=== PATIENT | female | born 1960 | race Caucasian/White ===

== ENCOUNTER → 2017-10-20 | Outpatient (CLI) | payer MEDICARE ==
--- NOTE | 2017-10-20 16:05 | XR ---
EXAMINATION TYPE: XR shoulder complete LT DATE OF EXAM: 10/20/2017 CLINICAL HISTORY: History of neuropathy with pain after multiple falls TECHNIQUE: Three views of the left shoulder are obtained. COMPARISON: None. FINDINGS: There is no acute fracture/dislocation evident in the left shoulder. The acromioclavicula r and glenohumeral joint spaces appear within normal limits. The visualized ribs are intact and unre markable. IMPRESSION: There is no acute fracture or dislocation in the left shoulder. Fairly unremarkable stud y.
== END | disposition home or self-care (01) ==
LOC: RADXRYALE 15:18
PROVIDERS: ATTEND Physician Assistant Medical
DX: M25.512 Pain in left shoulder (principal)

== ENCOUNTER → 2018-02-14 | Outpatient (CLI) | payer MEDICARE, OTHER ==
--- NOTE | 2018-02-14 15:07 | XR ---
EXAMINATION TYPE: XR hand complete LT DATE OF EXAM: 02/14/2018 CLINICAL HISTORY: pain TECHNIQUE: Frontal, lateral and oblique images of the left hand are obtained. COMPARISON: None. FINDINGS: There is no acute fracture/dislocation evident. The joint spaces appear within normal limi ts. The overlying soft tissue appears unremarkable. IMPRESSION: There is no acute fracture or dislocation. ICD 10 NO FRACTURE, INITIAL EVALUATION
== END | disposition home or self-care (01) ==
LOC: RADXRYALE 14:55
PROVIDERS: ATTEND Physician Assistant Medical
DX: M79.642 Pain in left hand (principal)

== ENCOUNTER → 2018-09-20 | Outpatient (CLI) | payer MEDICARE, OTHER ==
--- NOTE | 2018-09-20 12:21 | XR ---
EXAMINATION TYPE: XR foot complete LT DATE OF EXAM: 09/20/2018 CLINICAL HISTORY: Left heel pain TECHNIQUE: Frontal, lateral, and oblique images of the left foot are obtained. COMPARISON: None FINDINGS: There is no acute fracture/dislocation evident in the left foot. Bipartite sesamoid bone is incidentally noted at the distal first metatarsal. There are small Achilles and plantar heel spurs . The joint spaces in the left foot appear within normal limits. The overlying soft tissue appears u nremarkable. IMPRESSION: 1. No acute fracture or dislocation in the left foot. 2. Small plantar and Achilles heel spurs in this patient with calcaneal pain.
== END | disposition home or self-care (01) ==
LOC: RADXRYALE 10:57
PROVIDERS: ATTEND Physician Assistant Medical
DX: M77.32 Calcaneal spur, left foot (principal)

== ENCOUNTER → 2019-01-09 | Outpatient (CLI) | payer MEDICARE ==
--- NOTE | 2019-01-09 11:34 | XR ---
EXAMINATION TYPE: XR finger LT DATE OF EXAM: 01/09/2019 COMPARISON: Left hand x-ray dated 02/14/2018 HISTORY: Left thumb pain that is generalized with no known injury. TECHNIQUE: 2 views of the left thumb were obtained FINDINGS: There is osseous perforation and joint space narrowing of the first carpometacarpal joint. This is overall mild in degree. Small ossicles that are normal variants are seen of the first metacar pal phalangeal joint. Osseous pleura further changes also seen of the first interphalangeal joint wit h small well-corticated osteophyte at the volar surface of the base of the distal phalanx likely from prior healed fracture of a small osteophyte. IMPRESSION: 1. No acute fracture or dislocation of the left thumb. 2. Degenerative changes of the first carpometacarpal joint and distal interphalangeal joints that are overall mild in the distribution of osteoarthritis. 3. There appears to be an old fracture deformity of an osteophyte at the volar surface of the distal interphalangeal joint at the base of the distal phalanx that appears well-corticated and healed.
== END | disposition home or self-care (01) ==
LOC: RADXRYALE 10:19
PROVIDERS: ATTEND Physician Assistant Medical
DX: M18.12 Unilateral primary osteoarthritis of first carpometacarpal joint, left hand (principal)

== ENCOUNTER 2019-03-15 11:37 | Day surgery (SDC) | payer MEDICARE, OTHER ==
[2019-03-13 15:21] VITALS: BMI 33.3
[~2019-03-15 11:37] MED LIST: DEXAMETHASONE SOD PHOSPHATE 10 MG/ML 1 ML VIAL IV ONE; HYDROmorphone 0.5 MG/0.5 ML SYRINGE IVP PRN; LACTATED RINGERS 1,000 ML IV SCH; LIDOCAINE 1% 20 ML VIAL (10MG/ML) FOR IV START INTRADERMA PRN; MIDAZOLAM 2 MG/2 ML VIAL IV PRN; ONDANSETRON 4 MG/2 ML VIAL IVP ONE; Pre Op ABX Message 1 EACH MISC MISCELLANE ONE; SCOPOLAMINE 1.5MG/72HR PATCH TRANSDERM ONE
[2019-03-15] MEDS ORDERED: SODIUM CHLORIDE 0.9% 50 ML with ceFAZolin 2,000 MG IV ONE ×2 (12:15)
[2019-03-15 12:33] VITALS: RESP 16; TEMP 98.5
[2019-03-15 12:43] LABS: Glucose,Whole Blood 90 mg/dL (75-99)
[2019-03-15] MEDS ORDERED: fentaNYL (PF) 50 MCG/ML 2 ML AMP ONE (12:55)
[2019-03-15] MEDS ORDERED: MIDAZOLAM 2 MG/2 ML VIAL ONE (12:55)
[2019-03-15] MEDS ORDERED: PROPOFOL 10 MG/ML 20 ML VIAL IV ONE (12:55)
[2019-03-15] MEDS ORDERED: LIDOCAINE 2% INJ 20 MG/ML SQ ONE (13:21)
--- NOTE | 2019-03-15 13:56 | P.OP ---
Date of Procedure: 03/15/19 Preoperative Diagnosis: Plantar fasciitis left foot Postoperative Diagnosis: Same Procedure(s) Performed: Endoscopic plantar fasciotomy procedure performed left foot Anesthesia: MAC Operative Findings: Unremarkable Description of Procedure: On the date of surgery the patient was taken to the operating room in good condition placed on the operating table in supine position where an IV was started and adequate IV anesthetic agents were utilized anesthesia was then further supplemented with approximately 12 mL of 2% Xylocaine plain given in an infiltrative block to the patient's left heel. At this point in time attention was directed to the patient's left heel where the patient's left heel was prepped and draped in usual aseptic manner and over heavy up web roll padding tourniquet was placed above the malleoli of the patient's left ankle. The patient's left foot and ankle were then elevated and exsanguinated of blood and after approximately 1 minutes. A time ankle tourniquet the patient's left ankle was inflated to approximately 250 mmHg At this point in time attention was directed to the plantar medial side of the patient's left heel where an approximately 1 cm linear incision was made in line with the medial band of the plantar fascia. The incision was deepened via sharp dissection down through the level of the subcutaneous tissue layers all neurovascular structures encountered were identified isolated and were retracted and any bleeding vessels were clamped electrocauterized dissection was then carried deep down to level of the plantar fascia where utilizing a fascial elevator the fascial elevator was passed along the inferior surface of the plantar fascia creating a channel for the obturator and cannula complex this was then inserted and a lateral exit portal incision was made the endoscope was introduced from the medial side and L blade from the lateral side and the medial band of the plantar fascia was severed upon completion of this was used to ensure that all fibers of the plantar fascia been severed and when this was seen to be true site was flushed with copious amounts sterile saline solution and the loose removed and the skin edges were coaptated and maintained utilizing 4-0 nylon simple interrupted suture Adaptic Kerlix fluffs four-inch conformer and 4 inch Coban was used to form a compression dressing and the ankle tourniquet to the patient's left ankle was deflated adequate hemostatic return was seen in all digits the patient's left foot. The patient tolerated the surgery and anesthesia well was taken to the recovery room in good postoperative condition
[2019-03-15 14:48] VITALS: BP 131/77; PULSE 65
== END 2019-03-15 14:48 | disposition home or self-care (01) ==
LOC: OR 11:37
PROVIDERS: ATTEND Podiatrist Foot & Ankle Surgery
DX: M72.2 Plantar fascial fibromatosis (principal); I10 Essential (primary) hypertension; E11.9 Type 2 diabetes mellitus without complications; G89.29 Other chronic pain; M54.9 Dorsalgia, unspecified; G62.9 Polyneuropathy, unspecified; M26.602 Left temporomandibular joint disorder, unspecified; F41.1 Generalized anxiety disorder; E55.9 Vitamin D deficiency, unspecified; G43.909 Migraine, unspecified, not intractable, without status migrainosus; H90.8 Mixed conductive and sensorineural hearing loss, unspecified; F32.9 Major depressive disorder, single episode, unspecified; E66.9 Obesity, unspecified; Z88.1 Allergy status to other antibiotic agents; Z87.891 Personal history of nicotine dependence; Z90.49 Acquired absence of other specified parts of digestive tract; Z96.611 Presence of right artificial shoulder joint; Z98.890 Other specified postprocedural states; Z79.890 Hormone replacement therapy; Z79.84 Long term (current) use of oral hypoglycemic drugs; Z79.1 Long term (current) use of non-steroidal anti-inflammatories (NSAID); Z79.899 Other long term (current) drug therapy; Z68.34 Body mass index [BMI] 34.0-34.9, adult
CPT/HCPCS: 29893; J2001; J2250; J1100; J2405; J0690; J3010; J2704

== ENCOUNTER → 2019-06-29 | Outpatient (CLI) | payer MEDICARE, OTHER ==
[2019-06-29 15:22] LABS: Appearance,Urine Cloudy (Clear); Bacteria,Urine Occasional /hpf; Bilirubin,Urine Negative (Negative); Blood,Urine Negative (Negative); Color,Urine Yellow; Glucose,Urine (UA) Negative (Negative); Ketones,Urine Negative (Negative); Leukocyte Esterase,Urine Large (Negative); Nitrite,Urine Negative (Negative); Protein,Urine Negative (Negative); RBC,Urine 6 /hpf (0-5); Specific Gravity,Urine 1.005 (1.001-1.035); Squamous Epithelial Cell,Urine 6 /hpf (0-4); Urobilinogen,Urine <2.0 mg/dL (<2.0); WBC,Urine 47 /hpf (0-5)
[2019-06-29 15:25] LABS: Basophils % (A) 0 %; Eosinophils # (A) 0.4 k/uL (0-0.7); Eosinophils % (A) 3 %; HCT 46.6 % (34.0-46.0); HGB 14.7 gm/dL (11.4-16.0); Lymphocytes # (A) 1.8 k/uL (1.0-4.8); Lymphocytes % (A) 14 %; MCH 30.2 pg (25.0-35.0); MCHC 31.5 g/dL (31.0-37.0); Mean Platelet Volume 6.9; Monocytes # (A) 0.6 k/uL (0-1.0); Monocytes % (A) 5 %; Neutrophils # (A) 9.9 k/uL (1.3-7.7); Neutrophils % (A) 77 %; Platelet Count 212 k/uL (150-450); RBC 4.86 m/uL (3.80-5.40); RDW 13.3 % (11.5-15.5); WBC 12.9 k/uL (3.8-10.6)
[2019-06-29 15:35] LABS: Prothrombin Time 10.3 sec (9.0-12.0)
--- NOTE | 2019-06-29 15:40 | XR ---
EXAMINATION TYPE: XR chest 2V DATE OF EXAM: 06/29/2019 COMPARISON: NONE HISTORY: Preoperative evaluation for lumbar surgery. No chest complaints. TECHNIQUE: Frontal and lateral views of the chest are obtained. FINDINGS: Copious soft tissues partially obscure the lungs on the frontal view. There is no focal ai r space opacity, pleural mild multilevel degenerative change of the spine. Effusion, or pneumothorax seen. The cardiac silhouette size is within normal limits. The osseous structures are intact. IMPRESSION: No acute cardiopulmonary process.
== END | disposition home or self-care (01) ==
LOC: LABPAT 14:47
PROVIDERS: ATTEND Orthopaedic Surgery Orthopaedic Surgery of the Spine
DX: Z01.818 Encounter for other preprocedural examination (principal); M48.02 Spinal stenosis, cervical region; G95.89 Other specified diseases of spinal cord
CPT/HCPCS: 71046; 81001; 85025; 85610; 85730; 86850; 86900; 86901

== ENCOUNTER 2019-07-05 06:03 | Day surgery (SDC) | payer MEDICARE, OTHER ==
[2019-07-03 10:13] VITALS: BMI 37.5
[2019-07-05] MEDS ORDERED: SCOPOLAMINE 1.5MG/72HR PATCH TRANSDERM ONE (06:58)
[2019-07-05] MEDS ORDERED: LIDOCAINE 1% (10MG/ML) FOR IV START INTRADERMA PRN (06:58)
[2019-07-05] MEDS ORDERED: ONDANSETRON 4 MG/2 ML VIAL IVP ONE ×2 (06:58→10:34)
[2019-07-05] MEDS ORDERED: LACTATED RINGERS 1,000 ML IV SCH (07:00)
[2019-07-05 07:24] LABS: Glucose,Whole Blood 144 mg/dL (75-99)
[2019-07-05] MEDS ORDERED: PHENYLEPHRINE-0.9% NACL SYG 1 MG/10 ML SYRINGE ONE (07:25)
[2019-07-05] MEDS ORDERED: LIDOCAINE 1% INJ 10MG/ML (20 ML MDV) ONE (07:25)
[2019-07-05] MEDS ORDERED: ePHEDrine SULFATE/0.9% NACL/PF 50 MG/5 ML SYRINGE IV ONE (07:25)
[2019-07-05] MEDS ORDERED: DEXAMETHASONE SOD PHOS (MDV) 100 MG/10 ML VIAL ONE (07:25)
[2019-07-05] MEDS ORDERED: SUCCINYLCHOLINE CHLORIDE 100 MG/5 ML SYR IV ONE (07:25)
[2019-07-05] MEDS ORDERED: ROCURONIUM BROMIDE 10 MG/ML 5 ML VIAL IV ONE (07:25)
[2019-07-05] MEDS ORDERED: PROPOFOL 10 MG/ML 20 ML VIAL IV ONE (07:25)
[2019-07-05] MEDS ORDERED: MIDAZOLAM 2 MG/2 ML VIAL ONE (07:25)
[2019-07-05] MEDS ORDERED: fentaNYL (PF) 50 MCG/ML 2 ML AMP ONE (07:25)
[2019-07-05] MEDS ORDERED: SODIUM CHLORIDE 0.9% 100 ML with ceFAZolin 2,000 MG IV ONE ×2 (07:41)
[2019-07-05] MEDS ORDERED: BACITRACIN 50,000 UNIT, POLYMYXIN B 500,000 UNIT in SODIUM CHLORIDE 0.9% IRRIGATIO 1,00... IRRIGATION ONE (07:47)
[2019-07-05] MEDS ORDERED: BUPIVACAIN-EPI 0.25%-1:200,000 30 ML VIAL SQ ONE ×2 (07:56→08:03)
[2019-07-05] MEDS ORDERED: GELATIN SPONGE,ABSORB (LARGE) 1 EACH SPONGE MISCELLANE ONE (08:03)
[2019-07-05] MEDS ORDERED: THROMBIN (BOVINE) 5,000 UNIT VIAL MISCELLANE ONE (08:03)
--- NOTE | 2019-07-05 08:33 | XR ---
EXAMINATION TYPE: XR cervical spine 1V DATE OF EXAM: 07/05/2019 COMPARISON: NONE HISTORY: Needle placement TECHNIQUE: Single crosstable lateral view of the cervical spine intraoperatively FINDINGS/IMPRESSION: Needle placement appears at C5-C6 although C5 and C6 are suboptimally viewed due to overlying soft tissues. Patient is intubated. Straightening of the usual cervical lordosis is sec ondary to positioning.
--- NOTE | 2019-07-05 09:39 | XR ---
EXAMINATION TYPE: XR cervical spine 1V DATE OF EXAM: 07/05/2019 COMPARISON: 07/05/2019 HISTORY: 59-year-old female hardware placement TECHNIQUE: Single portable crosstable lateral view in the OR FINDINGS: ET tube is in place. Interval placement of C5-C7 ACDF hardware. Clear visualization of the C6 and mor e inferior vertebral bodies is limited due to overlying shoulders. The more cephalad alignment is deirdre ntained. IMPRESSION: Interval placement of C5-C7 ACDF hardware.
[2019-07-05] MEDS ORDERED: ONDANSETRON 4 MG/2 ML VIAL IVP PRN (09:47)
[2019-07-05] MEDS ORDERED: HYDROmorphone 1 MG/ML 1 ML SYRINGE IVP PRN (09:47)
[2019-07-05] MEDS ORDERED: HYDROmorphone 0.5 MG/0.5 ML SYRINGE IVP PRN (09:47)
[2019-07-05] MEDS ORDERED: ACETAMINOPHEN TAB 325 MG TAB PO PRN (09:47)
[2019-07-05] MEDS ORDERED: BENZOCAINE/MENTHOL LOZENG 1 EACH LOZENGE MUCOUS MEM PRN (09:47)
[2019-07-05] MEDS ORDERED: HYDROcodone/APAP 5-325MG 1 EACH TAB PO PRN (09:47)
--- NOTE | 2019-07-05 09:56 | P.OP ---
Date of Procedure: 07/05/19 Preoperative Diagnosis: Cervical myelopathy, cervical myelomalacia, severe cervical stenosis C5 6 C6 7, herniated nucleus pulposis C5 6 C6 7, upper extremity radiculopathy, upper and lower extremity weakness Postoperative Diagnosis: Same Anesthesia: GETA Pathology: none sent Condition: stable Disposition: PACU Description of Procedure: BRIEF OPERATIVE NOTE Preoperative Diagnosis:Cervical myelopathy, cervical myelomalacia, severe cervical stenosis C5 6 C6 7, herniated nucleus pulposis C5 6 C6 7, upper extremity radiculopathy, upper and lower extremity weakness Postoperative Diagnosis:Cervical myelopathy, cervical myelomalacia, severe cervical stenosis C5 6 C6 7, herniated nucleus pulposis C5 6 C6 7, upper extremity radiculopathy, upper and lower extremity weakness Procedure: Anterior cervical decompression with discectomy and fusion C5 6 C6 7 Placement of interbody graft C5 6 C6 7 Application of anterior cervical plate C5 6 7 Surgeon: Dr. Calixto Base Manager: Marcus Goyal is present throughout the entire the case persistence during positioning, dissection, exposure, visualization, and all crucial elements of the case as well as closure. Anesthesia: General anesthesia per Dr. John Estimated blood loss: Approximately 100 mL Complications: None apparent Components implanted: K2M [place] anterior cervical plate system with Vikos interbody allograft bone graft and 1 mL of DBX bone putty Disposition: To recovery room in good stable condition. OPERATIVE INDICATIONS The patient has had long-standing issues in their neck and upper extremities as well as with her lower extremities. She was having difficulty with her gait and her balance and coordination as well as her dexterity at her next extremities. She initially came to us because we are counseled in regards to her lumbar spine but realizes that she was having evidence of myelopathy and did further workup on her cervical spine. She is found have cervical myelomalacia and severe stenosis at C5 6 C6 7 with herniated nucleus pulposis which correlated well with her myelopathic symptoms. She had been having weakness. The patient has been through conservative treatment. We discussed various treatment options including surgery, and the patient wishes to proceed with surgery We discussed the risk, patient's alternatives and benefits of surgery including but not limited to, risk of bleeding risk of infection, risk of need for further surgery, risk of decreased, loss of motion, muscle function, malunion nonunion, hardware failure, nerve damage, paralysis, heart attack, and . We also discussed with the patient the fact that there is pandemic currently with Covid 19. I have been asymptomatic as has been the staff working with us. We explanted the patient however that we cannot absolutely guarantee complete lack of exposure during this time and he understands. Given the patient's myelopathy and neurologic change we felt that there is urgency to her procedure and that she should proceed with her surgery as scheduled as opposed to postponing further and risking further neurologic change. She understood these issues. OPERATIVE SUMMARY After discussing all the risks, patient alternatives and benefits at length, the patient elected to proceed with surgical intervention, signed informed consent, and presented for their procedure. The patient was seen and examined in the preoperative holding area and the surgical site was marked. The patient was given antibiotics and brought to the operating room. The patient was positioned on the operating room table in a supine position being careful to pad any bony prominences and pressure points. The patient was sedated and intubated by anesthesia in standard fashion. Once the airway and C- spine were stabilized the patient's arms were padded and tucked at her side, with her shoulders gently taped. The head was placed in a donut pad with the neck in good neutral alignment and position. We were careful to maintain the patient's cervical spine and good neutral alignment and position throughout. The patient was prepped and draped in a normal standard fashion. An appropriate timeout and keystone protocol performed. We were able to proceed with the surgery. The local wound area was infiltrated with local anesthetic. An incision was made transversely approximately 2-1/2 cm over the appropriate levels at C6. Dissection was taken down subcutaneously to the level of the platysma which was split in line with its fibers. Dissection was taken with a carotid approach, with the trachea and esophagus medial and the carotid sheath laterally. We dissected down to the anterior surface of the vertebral bodies. Intraoperative x-ray was taken which showed a marker at the appropriate level at C5 6. With the appropriate level positively confirmed, we were able to proceed with discectomy at the appropriate levels. All of the operative levels were exposed appropriately. The patient had all their twitches back, and there was no evidence of recurrent laryngeal issue. The wound was copiously irrigated and suctioned dry as had been done periodically throughout the case. At the appropriate level/levels, starting at C56 and then moving to C6 7 I established an annulotomy with an 11 blade scalpel. A discectomy was performed with a combination of pituitary rongeurs, curettes, a high-speed bur, and Kerrison rongeurs. The posterior longitudinal ligament was taken down as were any posterior osteophytes. There is severe thickening and posterior longitudinal ligament and some hardened disc with significant stenosis centrally and at the bilateral neural foramen. There is a calcified fragment of large disc herniation particular at C5 6. As able to remove the disc herniation posterior longitudinal ligament and any posterior osteophytes. This gave good central and bilateral foraminal decompression. There is no evidence of any dural tear or l eak. The endplates were prepared with a high-speed bur. With the endplates in good parallel position, I was able to size for the appropriate size interbody graft. The wound was irrigated and suctioned dry the graft was prepared and malleted into position. It had good alignment and position with the anterior surface flush with the anterior surface of the vertebral bodies. This was done similarly the appropriate levels first at C5 6 and then at C6 7. With the grafts intact, I was able to measure and contour and appropriate sized plate. The plate was positioned at the midline over the appropriate levels at C5 6 and 7. Screw holes were established with a hand drill and drill guide. Screws were placed in good alignment and position with excellent bony purchase. They were seated under the locking device. The construct was checked and found to be stable. Intraoperative x-ray was taken which showed good alignment and position of the implants at the appropriate levels. There was no evidence of any dural tear or leak. Good hemostasis was maintained. The wound was copiously irrigated and suctioned dry as had been done periodically throughout the case. The platysma was closed with absorbable suture. The subcutaneous tissue was closed. The subcuticular tissue was closed with absorbable suture. The wound was cleaned and dried and dressed appropriately. A soft cervical collar was placed appropriately. The patient was woken up by anesthesia, extubated, transferred back gently to their hospital bed and brought to the recovery room in good stable condition. The patient will be admitted to the hospital for appropriate postoperative care, medical management and monitoring. We will continue to follow them closely about the postoperative course.
[2019-07-05 10:13] LABS: Glucose,Whole Blood 146 mg/dL (75-99)
[2019-07-05] MEDS: HYDROmorphone 0.5 MG/0.5 ML SYRINGE IVP PRN ×2 (10:34→10:41)
[2019-07-05] MEDS ORDERED: SODIUM CHLORIDE 0.9% 1,000 ML IV ONE (10:41)
[2019-07-05] MEDS: SODIUM CHLORIDE 0.9% 1,000 ML IV SCH ×2 (11:38→12:02)
[2019-07-05 11:42] LABS: Glucose,Whole Blood 167 mg/dL (75-99)
[2019-07-05] MEDS: INSULIN ASPART (NovoLOG) 100 UNIT/ML VIAL SQ SCH ×3 (11:45→21:37)
[2019-07-05] MEDS: GABAPENTIN 400 MG CAP PO SCH ×2 (16:27→21:37)
[2019-07-05 17:00] LABS: Glucose,Whole Blood 212 mg/dL (75-99)
[2019-07-05 19:26] VITALS: TEMP 98.4
[2019-07-05 20:33] LABS: Glucose,Whole Blood 207 mg/dL (75-99)
[2019-07-05] MEDS ORDERED: AMITRIPTYLINE HCL 50 MG TAB PO SCH (21:00)
[2019-07-05] MEDS ORDERED: CITALOPRAM HYDROBROMIDE 10 MG TAB PO SCH (21:00)
[2019-07-06] MEDS: cycloSPORINE 0.05% OPHTH 0.4 ML DROPERETTE LEFT EYE SCH ×2 (00:09→08:29)
[2019-07-06 06:55] LABS: Glucose,Whole Blood 171 mg/dL (75-99)
[2019-07-06 07:48] VITALS: BP 145/75; PULSE 78; RESP 16
[2019-07-06] MEDS: GABAPENTIN 400 MG CAP PO SCH (08:28)
[2019-07-06] MEDS: INSULIN ASPART (NovoLOG) 100 UNIT/ML VIAL SQ SCH ×2 (08:28→12:10)
[2019-07-06] MEDS ORDERED: CHOLECALCIFEROL 1,000 UNIT TAB PO SCH (09:00)
[2019-07-06] MEDS ORDERED: PROPRANOLOL LA 80 MG CAP.SA.24H PO SCH (09:00)
[2019-07-06] MEDS ORDERED: NORETHINDRONE ACETATE PO SCH (09:00)
[2019-07-06] MEDS ORDERED: HYDROCHLOROTHIAZIDE 25 MG TAB PO SCH (09:00)
[2019-07-06] MEDS ORDERED: metFORMIN 500 MG TAB PO SCH (09:00)
[2019-07-06] MEDS ORDERED: CITALOPRAM HYDROBROMIDE 20 MG TAB PO SCH (09:00)
[2019-07-06] MEDS ORDERED: ESTRADIOL PO SCH (09:00)
--- NOTE | 2019-07-06 09:38 | P.DS ---
Providers Date of admission: 07/05/2019 Attending physician: Carmen Calixto Primary care physician: [facility] Course: The patient presented on the day of admission as per their operative note. She had severe cervical stenosis with herniated nucleus pulposis cervical myelopathy with upper extremity weakness and radiculopathy. The patient underwent her surgery with anterior cervical discectomy and decompression with fusion as per her operative note yesterday. She says she is feeling good today. She feels her arms have made some difference already with surgery. She has been up and around and is tolerating her soft diet. Her pain is controlled. Physical Exam The incision site is clean dry and intact. There is no erythema no drainage. There is no purulence no evidence of infection. Her neck is soft and supple. There is no significant swelling. There is no drainage. Abdomen soft and nontender. Chest has good excursion with deep inspiration and expiration. The patient has active and passive range of motion intact at the upper and lower extremities. There is no acute change in neurologic status. She has good use of her upper extremities bilaterally. She has been ambulatory in her room. Hospital Course Postoperative day #1 status post anterior cervical decompression with discectomy and fusion C5 6 C6 7 for her severe cervical stenosis with herniated nucleus pulposus and cervical myelopathy and upper extremity throughout the weakness. Patient is making good progress postoperatively thus far and is happy with results thus far. They have completed the prophylactic antibiotics without any signs or symptoms of infection. The patient has been able to advance their diet, and is tolerating diet adequately. The pain was initially controlled with IV medications and is now controlled appropriately with oral medications. The patient has been able to increase their mobilization. The patient has progressed appropriately. I think they are in good stable condition for discharge today. They will be sent home with appropriate prescriptions. I answered their questions to the best of my ability in a language that they can understand and they are agreeable with the plan. They will follow up as directed in approximately 2 weeks or sooner if she is having problems. Plan - Discharge Summary Discharge Rx Participant: Yes New Discharge Prescriptions: New HYDROcodone/APAP 5-325MG [Commack 5] 1 each PO Q6HR PRN #28 tab PRN Reason: Pain No Action cycloSPORINE [Restasis] 1 applicator LEFT EYE BID Amitriptyline HCl 50 mg PO HS Hydrochlorothiazide [Hydrodiuril] 25 mg PO DAILY Gabapentin 1,200 mg PO TID Meloxicam [Mobic] 15 mg PO DAILY Citalopram Hydrobromide [CeleXA] 10 mg PO BID Citalopram Hydrobromide [CeleXA] 20 mg PO QAM Cholecalciferol (Vitamin D3) [Vitamin D3] 5,000 unit PO DAILY Estradiol/Norethindrone Acet [Lopreeza 0.5 mg-0.1 mg Tablet] 1 each PO DAILY metFORMIN HCL [Glucophage] 500 mg PO DAILY Propranolol LA [Inderal LA] 80 mg PO DAILY Discharge Medication List Amitriptyline HCl 50 mg PO HS 03/13/19 [History] Cholecalciferol (Vitamin D3) [Vitamin D3] 5,000 unit PO DAILY 03/13/19 [History] Citalopram Hydrobromide [CeleXA] 10 mg PO BID 03/13/19 [History] Citalopram Hydrobromide [CeleXA] 20 mg PO QAM 03/13/19 [History] Estradiol/Norethindrone Acet [Lopreeza 0.5 mg-0.1 mg Tablet] 1 each PO DAILY 03/13/19 [History] Gabapentin 1,200 mg PO TID 03/13/19 [History] Hydrochlorothiazide [Hydrodiuril] 25 mg PO DAILY 03/13/19 [History] Meloxicam [Mobic] 15 mg PO DAILY 03/13/19 [History] cycloSPORINE [Restasis] 1 applicator LEFT EYE BID 03/13/19 [History] Propranolol LA [Inderal LA] 80 mg PO DAILY 07/03/19 [History] metFORMIN HCL [Glucophage] 500 mg PO DAILY 07/03/19 [History] HYDROcodone/APAP 5-325MG [Commack 5] 1 each PO Q6HR PRN #28 tab 07/05/19 [Rx] Follow up Appointment(s)/Referral(s): Carmen Calixto DO [Doctor of Osteopathic Medicine] - 2 Weeks (Follow-up appointment in person for follow-up x-rays and evaluation of the surgical site) Activity/Diet/Wound Care/Special Instructions: Keep site clean. May shower with waterproof Tegaderm intact. Do not soak in a tub. After 72 hours postoperatively, patient May remove dressing and then may shower with area uncovered. Leave Steri-Strips intact and allow them to fray off on their own. May ambulate as tolerated. Avoid heavy or rigorous activity. No repetitive bending twisting or lifting. No overhead work. Discharge Disposition: HOME SELF-CARE
[2019-07-06 11:48] LABS: Glucose,Whole Blood 189 mg/dL (75-99)
[2019-07-06] MEDS ORDERED: CITALOPRAM HYDROBROMIDE 10 MG TAB PO SCH (14:00)
== END 2019-07-06 13:16 | disposition home or self-care (01) ==
LOC: OR 06:03 → 4SSUR 09:55 → OR 07-06 13:16
PROVIDERS: ATTEND Orthopaedic Surgery Orthopaedic Surgery of the Spine
DX: M50.022 Cervical disc disorder at C5-C6 level with myelopathy (principal); M50.122 Cervical disc disorder at C5-C6 level with radiculopathy; G95.89 Other specified diseases of spinal cord; M48.02 Spinal stenosis, cervical region; M48.061 Spinal stenosis, lumbar region without neurogenic claudication; M47.816 Spondylosis without myelopathy or radiculopathy, lumbar region; M47.817 Spondylosis without myelopathy or radiculopathy, lumbosacral region; M41.86 Other forms of scoliosis, lumbar region; M51.36 Other intervertebral disc degeneration, lumbar region; B37.89 Other sites of candidiasis; E11.9 Type 2 diabetes mellitus without complications; H91.90 Unspecified hearing loss, unspecified ear; E66.9 Obesity, unspecified; Z87.891 Personal history of nicotine dependence; Z79.3 Long term (current) use of hormonal contraceptives; Z79.84 Long term (current) use of oral hypoglycemic drugs; Z79.899 Other long term (current) drug therapy; Z97.3 Presence of spectacles and contact lenses; Z88.1 Allergy status to other antibiotic agents; Z90.49 Acquired absence of other specified parts of digestive tract; Z98.890 Other specified postprocedural states; Z83.3 Family history of diabetes mellitus; Z82.49 Family history of ischemic heart disease and other diseases of the circulatory system; Z68.37 Body mass index [BMI] 37.0-37.9, adult
CPT/HCPCS: 22853 ×2; 22845; 22551; 22552; 72020; C1713 ×2; C1762; J2250; J0690 ×3; J2405; J2001; J3010; J1100; J2370; J0330; J2704; J1170; 86850; 86900; 86901

== ENCOUNTER → 2020-01-01 | Outpatient (CLI) | payer MEDICARE, OTHER ==
--- NOTE | 2020-01-01 18:19 | MR ---
EXAMINATION TYPE: MR brain wo con DATE OF EXAM: 01/01/2020 COMPARISON: None HISTORY: Repeated falling, dizziness, headaches There is cerebral cortical atrophy. There is no mass effect nor midline shift. There is no sign of in tracranial hemorrhage. There is severe thinning of the corpus callosum. Diffusion images show no evid ence of an acute infarct. On the T2 and FLAIR images there are some linear areas of mixed signal that could be prominent veins in both cerebral hemispheres. These measure less than 4 mm. The brainstem i s intact. Cerebellum is intact. Sella turcica is normal. There is no evidence of orbital mass. IMPRESSION: Cerebral atrophy. No acute intracranial abnormality. 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
== END | disposition home or self-care (01) ==
LOC: RADMRIMAIN 16:02
PROVIDERS: ATTEND Physician Assistant Medical
DX: G31.1 Senile degeneration of brain, not elsewhere classified (principal); Q04.0 Congenital malformations of corpus callosum; R53.1 Weakness; R42 Dizziness and giddiness; R29.6 Repeated falls
CPT/HCPCS: 70551

== ENCOUNTER 2020-04-08 16:02 | Emergency (ER) | payer MEDICARE ==
[2020-04-08 16:07] VITALS: BP 138/85; PULSE 70; RESP 18; TEMP 99.2
--- NOTE | 2020-04-08 17:04 | ED ---
Head Injury HPI - General Chief complaint: Head Injury Stated complaint: fall/hit head Time Seen by Provider: 04/08/20 16:23 Source: patient, RN notes reviewed Mode of arrival: ambulatory Limitations: no limitations - History of Present Illness Initial comments: 59-year-old female presents emergency Department chief complaint of head injury. Patient states she fell getting some laundry earlier today. Patient states that she's had a headache, dizziness change in vision. Patient states she just feels very fatigued and states that she is afraid to fall asleep. Patient states that she contact her PCP who recommended her coming ago to the ER. Patient states she presents to the ER. He has a blood thinners. Patient denies any other complaints. - Related Data Home Medications Medication Instructions Recorded Confirmed Amitriptyline HCl 50 mg PO HS 03/13/19 07/03/19 Cholecalciferol (Vitamin D3) 5,000 unit PO DAILY 03/13/19 07/03/19 [Vitamin D3] Citalopram Hydrobromide [CeleXA] 10 mg PO BID 03/13/19 07/03/19 Citalopram Hydrobromide [CeleXA] 20 mg PO QAM 03/13/19 07/03/19 Estradiol/Norethindrone Acet 1 each PO DAILY 03/13/19 07/03/19 [Lopreeza 0.5 mg-0.1 mg Tablet] Gabapentin 1,200 mg PO TID 03/13/19 07/03/19 Meloxicam [Mobic] 15 mg PO DAILY 03/13/19 07/03/19 cycloSPORINE [Restasis] 1 applicator LEFT EYE BID 03/13/19 07/03/19 hydroCHLOROthiazide [Hydrodiuril] 25 mg PO DAILY 03/13/19 07/03/19 Propranolol LA [Inderal LA] 80 mg PO DAILY 07/03/19 07/03/19 metFORMIN HCL [Glucophage] 500 mg PO DAILY 07/03/19 07/03/19 Previous Rx's Medication Instructions Recorded HYDROcodone/APAP 5-325MG [Tripp 5] 1 each PO Q6HR PRN #28 tab 07/05/19 Allergies/Adverse reactions: Allergies Allergy/AdvReac Type Severity Reaction Status Date / Time metronidazole [From Flagyl] Allergy Rash/Hives Verified 12/28/20 16:09 Review of Systems ROS Statement: Those systems with pertinent positive or pertinent negative responses have been documented in the HPI. ROS Other: All systems not noted in ROS Statement are negative. Past Medical History Past Medical History: Diabetes Mellitus Additional Past Medical History / Comment(s): swelling rachel ankles,plantar fascitis rachel feet,neuropathy rachel legs,type 2 diabetes,steroid injection Feb History of Any Multi-Drug Resistant Organisms: None Reported Past Surgical History: Back Surgery, Cholecystectomy, Orthopedic Surgery Additional Past Surgical History / Comment(s): back surgery x3,lft knee,rt shoulder Past Anesthesia/Blood Transfusion Reactions: Postoperative Nausea & Vomiting (PONV) Additional Past Anesthesia/Blood Transfusion Reaction / Comment(s): no hx blood transfusion,TMJ left side-states "no problems opening jaw or closing" Past Psychological History: Anxiety Past Alcohol Use History: None Reported Past Drug Use History: None Reported - Past Family History Mother Family Medical History: No Reported History General Exam Limitations: no limitations General appearance: alert, in no apparent distress Head exam: Present: atraumatic, normocephalic, normal inspection Eye exam: Present: normal appearance, PERRL, EOMI. Absent: scleral icterus, con junctival injection, periorbital swelling ENT exam: Present: normal exam, normal oropharynx, mucous membranes moist Neck exam: Present: normal inspection, full ROM. Absent: tenderness, meningismus, lymphadenopathy Respiratory exam: Present: normal lung sounds bilaterally. Absent: respiratory distress, wheezes, rales, rhonchi, stridor Cardiovascular Exam: Present: regular rate, normal rhythm, normal heart sounds. Absent: systolic murmur, diastolic murmur, rubs, gallop, clicks GI/Abdominal exam: Present: soft, normal bowel sounds. Absent: distended, tenderness, guarding, rebound, rigid Extremities exam: Present: normal inspection, full ROM, normal capillary refill. Absent: tenderness, pedal edema, joint swelling, calf tenderness Neurological exam: Present: alert, oriented X3, CN II-XII intact, normal gait, reflexes normal, other (Finger to nose intact bilaterally without over shooting). Absent: motor sensory deficit Skin exam: Present: warm, dry, intact, normal color. Absent: rash Course Vital Signs 04/08/20 16:04 Temperature 99.2 F Pulse Rate 70 Respiratory 18 Rate Blood Pressure 138/85 O2 Sat by Pulse 97 Oximetry Medical Decision Making - Medical Decision Making CT of the brain shows no acute changes. There does show some hyperplasia of the corpus callosum which is chronic and not new from prior MRI. Patient we discharged him stable condition return parameters discussed. Patient is mild concussion symptoms. Disposition Clinical Impression: Concussion without loss of consciousness Disposition: HOME SELF-CARE Condition: Stable Instructions (If sedation given, give patient instructions): Concussion (ED) Additional Instructions: Please return to the Emergency Department if symptoms worsen or any other concerns. Is patient prescribed a controlled substance at d/c from ED?: No Referrals: Power Mendzoa DO [Primary Care Provider] - 1-2 days Time of Disposition: 17:28
--- NOTE | 2020-04-08 17:05 | CT ---
EXAMINATION TYPE: CT brain wo con DATE OF EXAM: 04/08/2020 COMPARISON: None HISTORY: headache and dizziness post fall CT DLP: 1082.4 mGycm Automated exposure control for dose reduction was used. There is some cerebral cortical atrophy. There is some deformity of the corpus callosum with apparent agenesis. There is no mass effect nor midline shift. There is no sign of intracranial hemorrhage. Ca lvarium is intact. Skull base is intact. 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 No acute intracranial abnormality. Cerebral atr ophy. No change compared to MR scan of 01/01/2020.
== END 2020-04-08 17:38 | disposition home or self-care (01) ==
LOC: EC 16:02
DX: S06.0X0A Concussion without loss of consciousness, initial encounter (principal); G93.89 Other specified disorders of brain; E11.40 Type 2 diabetes mellitus with diabetic neuropathy, unspecified; F41.9 Anxiety disorder, unspecified; Z79.84 Long term (current) use of oral hypoglycemic drugs; Z79.899 Other long term (current) drug therapy; Z79.3 Long term (current) use of hormonal contraceptives; Z79.1 Long term (current) use of non-steroidal anti-inflammatories (NSAID); Z88.1 Allergy status to other antibiotic agents; W19.XXXA Unspecified fall, initial encounter
CPT/HCPCS: 70450; 99283

== ENCOUNTER → 2020-07-01 | Outpatient (CLI) | payer MEDICARE ==
--- NOTE | 2020-07-01 12:25 | XR ---
EXAMINATION TYPE: XR hand complete LT DATE OF EXAM: 07/01/2020 CLINICAL HISTORY: pain TECHNIQUE: Frontal, lateral and oblique images of the left hand are obtained. COMPARISON: None. FINDINGS: There is no acute fracture/dislocation evident. The joint spaces appear within normal limi ts. The overlying soft tissue appears unremarkable. IMPRESSION: There is no acute fracture or dislocation. ICD 10 NO FRACTURE, INITIAL EVALUATION
== END ==
LOC: RADXRYALE 12:01
PROVIDERS: ATTEND Physician Assistant Medical
DX: M79.642 Pain in left hand (principal); M25.532 Pain in left wrist

== ENCOUNTER → 2020-07-24 | Outpatient (CLI) | payer MEDICARE ==
--- NOTE | 2020-07-24 15:44 | CONS ---
CONSULTATION DATE OF SERVICE: 07/24/2020 This 60-year-old lady has been evaluated in Sleep Center for possible obstructive sleep apnea-hypopnea syndrome. HISTORY OF PRESENT ILLNESS/SLEEP-WAKE EVALUATION: The patient's usual sleep schedule is from around 11 or 12 midnight until 10:30 a.m. She does have problems with falling asleep, although no TV in bedroom. She sleeps in different positions, including back, side and stomach. According to her , she has very loud snoring. She wakes up from sleep 3 times with nocturia. In the morning the patient has headaches and feels tiredness and sleepiness. [place] Sleepiness Scale is 9. Positive history of episodes of anxiety. PAST MEDICAL HISTORY: Positive for asthma, headaches, episodes of anxiety, diabetes mellitus, iron deficiency anemia, menopause. PAST SURGICAL HISTORY: Uterus ablation, right shoulder surgery, cholecystectomy, left knee surgery, 3 back surgeries. MEDICATIONS: 1. Gabapentin. 2. Citalopram 10 mg 2 a day. 3. Meloxicam 15 mg once a day. 4. Hydrochlorothiazide 25 mg once a day. 5. Propranolol 80 mg once a day. 6. Amitriptyline. The patient does not remember the dosage at bedtime. 7. Restasis twice a day. 8. Vitamin D3. REVIEW OF SYSTEMS: Multiple awakenings from sleep and episodes of sleepiness during the day. The patient takes naps during the day. PHYSICAL EXAMINATION: GENERAL: A pleasant lady without distress. VITAL SIGNS: BP 125/75, HR 67, RR 12, height 5 feet 5 inches, weight 227.6, BMI 37.7, temperature 97.1. Oxygen saturation at room air 98%. HEENT: PERRLA, EOMI. Evaluation of oropharynx showed tongue protrudes midline. Extremely low position of soft palate. Mallampati IV. NECK: Supple. No JVD. Thyroid is not palpable. Neck is wide; 16-1/2 inches in circumference. LUNGS: Clear to percussion and to auscultation. Good air exchange. No wheezing or rhonchi. HEART: S1, S2 regular. No murmurs, gallops or rubs. ABDOMEN: Obese. EXTREMITIES: No clubbing or cyanosis. DIAMOND DIE POLISHER: Awake, alert, and oriented X3. Cranial nerves 2 to 7 intact. There is no fasciculation or atrophy. noted. No focal deficits observed. IMPRESSION: 1. Loud snoring, multiple awakenings from sleep with nocturia, extremely low position of soft palate, Mallampati IV, wide neck at 16-1/2 inches in circumference; obstructive sleep apnea-hypopnea syndrome. 2. History of asthma. 3. Headaches. 4. Diabetes mellitus. 5. History of iron deficiency anemia in the past. 6. Status post uterus ablation. 7. Menopause. 8. Status post right shoulder surgery. 9. Status post cholecystectomy. 10.Status post left knee surgery. 11.Status post 3 back surgeries. PLAN: 1. Polysomnography for evaluation of patient's breathing during sleep. 2. CPAP/BiPAP titration if sleep study confirms obstructive sleep apnea-hypopnea syndrome. 3. Preferable position during sleep on the side. 4. No driving if patient feels any sleepiness. 5. I will see patient for follow up visit to explain results of testing and following plan. Thank you very much for referring this patient for consultation. Sincerely, Murali Cárdenas MD, PhD, FAASM Diplomat of [place] [employer] [place] [employer] Food And Beverage Analyst of [facility] [place] MMODL / IJN: [id number] /
== END | disposition home or self-care (01) ==
LOC: SLEEP 14:22
PROVIDERS: ATTEND Internal Medicine
DX: G47.33 Obstructive sleep apnea (adult) (pediatric) (principal); E11.9 Type 2 diabetes mellitus without complications; R51.9 Headache, unspecified; Z87.09 Personal history of other diseases of the respiratory system; Z79.1 Long term (current) use of non-steroidal anti-inflammatories (NSAID); Z79.899 Other long term (current) drug therapy; Z90.49 Acquired absence of other specified parts of digestive tract; Z98.890 Other specified postprocedural states; Z78.0 Asymptomatic menopausal state
CPT/HCPCS: 99211

== ENCOUNTER → 2020-10-30 | Outpatient (CLI) | payer MEDICARE, OTHER ==
--- NOTE | 2020-10-30 22:09 | SFUN ---
SLEEP CENTER FOLLOW UP NOTE DATE OF SERVICE: 10/30/2020 A 60-year-old lady has been followed in Sleep Center for treatment of obstructive sleep apnea-hypopnea syndrome. Recently the patient had a polysomnogram which showed that she has obstructive sleep apnea and I discussed results of diagnostic polysomnogram with the patient in detail. Then, she had CPAP titration and her respiration normalized on the BiPAP. Today is her first visit after patient was started on treatment with BiPAP. She is able to use her BiPAP equipment and feels better while she used the treatment. I checked her BiPAP unit. Maximal inspiratory pressure 20, minimal expiratory pressure 4 with average pressure of 12.8/8.8. Usage is 26/30 nights and 15/30 nights for more than 4 hours with average usage 4.9 hours per night. Leak is 12 L/minute. Apnea- hypopnea index reading from the machine only 2.5, which is perfect. MEDICATIONS: Gabapentin, citalopram 10 mg twice a day, meloxicam 15 mg once a day. Hydrochlorothiazide 25 mg once a day. Propranolol 80 mg once a day. Amitriptyline, Restasis, vitamin D3. PHYSICAL EXAMINATION: GENERAL: Patient in no distress. BP 117/78, HR 68, weight 197, temperature 98.7, oxygen saturation at room air 94%. Oropharynx: Low position of soft palate. Mallampati 4. NECK: Supple, no JVD. Thyroid is not palpable. LUNGS: Clear to percussion and to auscultation. Good air exchange. No wheezing or rhonchi. HEART: S1, S2 regular. No murmurs, gallops, or rubs. ABDOMEN: Obese. Soft and nontender. Bowel sounds are present. No organomegaly appreciated. EXTREMITIES: No clubbing or cyanosis. SIGNAL MAINTAINER: Awake, alert, and oriented X3. Cranial nerves 2 to 7 intact. There is no fasciculation or atrophy. noted. No focal deficits observed. IMPRESSION: 1. Moderate obstructive sleep apnea-hypopnea syndrome; apnea-hypopnea index 22.2 with oxygen desaturation to 67.9%. The patient demonstrated borderline compliance with treatment, benefitting from treatment. Normal respiration on BiPAP. 2. History of asthma. 3. Headaches. 4. Diabetes mellitus. 5. History of iron deficiency anemia in the past. 6. Status post uterine ablation. 7. Menopause. 8. Status post right shoulder surgery. 9. Status post cholecystectomy. 10.Status post left knee surgery. 11.Status post 3 back surgeries. PLAN: 1. Patient will continue to use PAP equipment every night for the whole night. 2. Sleep hygiene with regular time in bed for at least 7-1/2 to 8 hours. 3. Precautions related to driving. No driving if feeling sleepiness. 4. I will maintain all necessary prescription for PAP supplies including mask, tube, filters. 5. Watching weight. 6. Follow-up visit in 6 months or earlier if patient has any problems. Thank you very much for allowing me to participate in management of your patient. Sincerely, Murali Cárdenas MD, PhD, FAASM Diplomat of [place] Board of Medical Specialties Sleep Medicine Board of [place] Board of Internal Medicine Electrical Intern of [facility] [place] MMALEXAL / LESLY: [id number] /
== END | disposition home or self-care (01) ==
LOC: SLEEP 13:37
PROVIDERS: ATTEND Internal Medicine
DX: G47.33 Obstructive sleep apnea (adult) (pediatric) (principal); J45.909 Unspecified asthma, uncomplicated; E11.9 Type 2 diabetes mellitus without complications; Z78.0 Asymptomatic menopausal state; Z79.899 Other long term (current) drug therapy; Z79.1 Long term (current) use of non-steroidal anti-inflammatories (NSAID); Z90.49 Acquired absence of other specified parts of digestive tract; Z86.2 Personal history of diseases of the blood and blood-forming organs and certain disorders involving the immune mechanism; Z98.890 Other specified postprocedural states

== ENCOUNTER → 2021-04-02 | Outpatient (CLI) | payer MEDICARE, OTHER ==
--- NOTE | 2021-04-02 13:27 | XR ---
EXAMINATION TYPE: XR thoracic spine complete, 3 views DATE OF EXAM: 04/02/2021 Comparison: None Clinical History: 60-year-old female [id number] THOR PAIN Findings: C5-C7 ACDF. Mild/moderate degenerative disc disease lower thoracic spine with disc space narrowing an d endplate spondylosis. Vertebral body heights are preserved and alignment is maintained. 12 thoracic vertebral bodies. All pedicles are visualized. Cholecystectomy clips. Slight leftward curvature of t he upper thoracic spine may be positional. Impression: Mild to moderate degenerative disc disease lower thoracic spine. No vertebral compression collapse or malalignment.
== END | disposition home or self-care (01) ==
LOC: RADXRYALE 09:38
PROVIDERS: ATTEND Physician Assistant Medical
DX: M51.34 Other intervertebral disc degeneration, thoracic region (principal)
CPT/HCPCS: 72072

== ENCOUNTER 2021-11-07 06:59 | Day surgery (SDC) | payer MEDICARE ==
[2021-11-06 10:55] VITALS: BMI 35.7
[~2021-11-07 06:59] MED LIST changes: -DEXAMETHASONE SOD PHOSPHATE 10 MG/ML 1 ML VIAL IV ONE; -HYDROmorphone 0.5 MG/0.5 ML SYRINGE IVP PRN; +LIDOCAINE 1% (10MG/ML) FOR IV START INTRADERMA PRN; -LIDOCAINE 1% 20 ML VIAL (10MG/ML) FOR IV START INTRADERMA PRN; -MIDAZOLAM 2 MG/2 ML VIAL IV PRN; -ONDANSETRON 4 MG/2 ML VIAL IVP ONE; -Pre Op ABX Message 1 EACH MISC MISCELLANE ONE; -SCOPOLAMINE 1.5MG/72HR PATCH TRANSDERM ONE
[2021-11-07 07:36] VITALS: TEMP 97.6
[2021-11-07 07:38] LABS: Glucose,Whole Blood 105 mg/dL (70-110)
[2021-11-07] MEDS ORDERED: LIDOCAINE 2% INJ 20 MG/ML (2 ML VIAL) ONE (07:39)
[2021-11-07] MEDS ORDERED: PROPOFOL 10 MG/ML 20 ML VIAL IV ONE (07:39)
--- NOTE | 2021-11-07 07:56 | P.PCN ---
Date of Procedure: 11/07/21 Procedure(s) Performed: BRIEF HISTORY: Patient is a 61-year-old pleasant white female scheduled for an elective colonoscopy as a part of evaluation change in bowel habits for the last 6 months duration. PROCEDURE PERFORMED: Colonoscopy with biopsy. PREOPERATIVE DIAGNOSIS: Change in bowel habits. IV sedation per Anesthesia. PROCEDURE: After informed consent was obtained, the patient, was brought into the endoscopy unit. IV sedation was administered by Anesthesia under continuous monitoring. Digital rectal examination was normal. Initially the Olympus CF-160 flexible video colonoscope was then inserted in the rectum, gradually advanced into the cecum without any difficulty. Careful examination was performed as the scope was gradually being withdrawn. Ileocecal valve and the appendiceal orifice were visualized and appeared normal. Prep was excellent. Mucosa of the cecum, ascending colon, appeared normal. In the transverse colon there was a 3-4 mm sessile polyp that was removed by cold biopsy. Rest of the transverse colon, descending colon, sigmoid colon, and rectum appeared normal. Retroflexion was performed in the rectum and no lesions were seen. The patient tolerated the procedure well. IMPRESSION: 7-4 mm sessile transverse colon polyp status post cold biopsy Rest of the colon appeared normal RECOMMENDATIONS: Findings of this examination were discussed with the patient as well as a family.. She was advised to follow with the biopsy results. If the biopsy reveals adenoma she can have a repeat colonoscopy in 5 years.
[2021-11-07 08:05] VITALS: PULSE 66
[2021-11-07 08:24] VITALS: BP 121/68; RESP 16
== END 2021-11-07 09:29 | disposition home or self-care (01) ==
LOC: ORWHC2ENDO 06:59
PROVIDERS: ATTEND Internal Medicine Gastroenterology
DX: D12.3 Benign neoplasm of transverse colon (principal); E11.42 Type 2 diabetes mellitus with diabetic polyneuropathy; Z79.84 Long term (current) use of oral hypoglycemic drugs; Z79.1 Long term (current) use of non-steroidal anti-inflammatories (NSAID); Z79.899 Other long term (current) drug therapy; J45.909 Unspecified asthma, uncomplicated; Z87.891 Personal history of nicotine dependence; F41.9 Anxiety disorder, unspecified; Z90.49 Acquired absence of other specified parts of digestive tract; Z98.890 Other specified postprocedural states; Z79.891 Long term (current) use of opiate analgesic; Z88.1 Allergy status to other antibiotic agents
CPT/HCPCS: 88305; 45380; J2704; J2001

== ENCOUNTER → 2022-07-08 | Outpatient (CLI) | payer MEDICARE ==
--- NOTE | 2022-07-09 10:37 | MM ---
Reason for Exam: Screening (asymptomatic). Baseline mammogram. Patient History: Menarche at age 15. First Full-Term at age 27. Postmenopausal. Patient used Estrogen for 18 years. Excisional Biopsy on the Right side. Risk Values: Marilee 5 year model risk: 1.9%. Prior Study Comparison: Patient's first Mammogram. No prior studies available for comparison. Tissue Density: There are scattered fibroglandular densities. Findings: Analyzed By CAD. Pattern appears symmetrical. There is a prior core marker within the right breast. Multiple benign appearing round calcifications are present. No suspicious groups of microcalcifications, spiculated or lobular masses, architectural distortion or other secondary signs of malignancy are mammographically apparent. Overall Assessment: Benign, BI-RAD 2 Management: Screening Mammogram of both breasts in 1 year. A negative mammogram report should not preclude additional follow up of suspicious palpable abnormalities. Patient should continue monthly self breast exam. A clinical breast exam by your physician is recommended on an annual basis and results should be correlated with mammographic findings. Electronically signed and approved by: Angelito Aguirre D.O. Radiologis
== END | disposition home or self-care (01) ==
LOC: RADMAMWWP 14:50
PROVIDERS: ATTEND Family Medicine
DX: Z12.31 Encounter for screening mammogram for malignant neoplasm of breast (principal); Z78.0 Asymptomatic menopausal state
CPT/HCPCS: 77063; 77067

== ENCOUNTER → 2022-08-24 | Outpatient (CLI) | payer MEDICARE ==
--- NOTE | 2022-08-24 17:59 | MR ---
EXAMINATION TYPE: MR brain wo con DATE OF EXAM: 08/24/2022 COMPARISON: MRI brain January 01, 2020 HISTORY: Falls, past out. Syncope. TECHNIQUE: Multiplanar, multisequence imaging of the brain and brainstem is performed without IV cont rast. FINDINGS: Diffusion weighted images demonstrate no evidence of a recent infarct or other diffusion abnormality. Mild ventricular and sulcal prominence is redemonstrated. Asymmetry to the ventricles is redemonstrat ed. Thinning of the corpus callosum sagittal image 16 is again seen. Agenesis of the genu is suspecte d. The craniocervical junction appears within normal limits. Normal vascular flow voids are present. The visualized sinuses are clear and the globes are intact. 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 No significant change from prior MRI.
== END | disposition home or self-care (01) ==
LOC: RADMRIMAIN 16:06
PROVIDERS: ATTEND Physician Assistant
DX: G31.9 Degenerative disease of nervous system, unspecified (principal); R55 Syncope and collapse
CPT/HCPCS: 70551

== ENCOUNTER → 2022-11-11 | Outpatient (CLI) | payer MEDICARE ==
--- NOTE | 2022-11-11 15:04 | P.PN ---
Subjective DATE: [] FOLLOW UP VISIT. Patient with obstructive sleep apnea hypopnea syndrome return to sleep center for follow-up visit. Information from previous visit have been reviewed. I so patient was in one year ago. Says that time patient stopped using sure BiPAP equipment and return equipment to [employer]. Patient continued to have significant problems with sleeping awakenings and episodes of headaches in the morning after awakenings from sleep. [place] sleepiness scale is 8. MEDICATIONS:1. Gabapentin 600 mg twice a day 2. Meloxicam 50 mg 2 tablets 2 times a day 3. Propranolol 80 mg once a day 4. Citalopram 20 mg once a day 5. Metformin 50 mg once a day 6. Hydrochlorothiazide 25 mg once a day 7. Amitriptyline 50 mg once a day 8. Bupropion 150 mg once a day During physical exam: GENERAL: A pleasant patient without any distress. VITAL SIGNS: BP 127/73, HR 53, RR 20, weight 192.6, temperature 97.9, oxygen saturation at room air 97 % . HEENT: PERRLA, EOMI.low position of soft palate, Mallapati 4 . NECK: Supple. No JVD. LUNGS: Clear to percussion and to auscultation. Good air exchange. No wheezing or rhonchi. HEART: S1, S2 regular. ABDOMEN: Soft and nontender.[] EXTREMITIES: No clubbing or cyanosis. ASSOCIATE PROFESSOR OF MATHEMATICS: Awake, alert, and oriented x3. No focal deficit. Impressions: 1. Obstructive sleep apnea-hypopnea syndrome. 2. Headaches in the morning after awakenings from sleep. 3. History of asthma. 4. Diabetes mellitus. 5. Status post uterosacral ablation. 6. Status post 3 back surgeries. 7. Status post left knee surgery. Plan: 1. Home sleep apnea test for evaluation of patient breathing during the sleep with goal to reinitiate Pap therapy. 2. Sleep hygiene with regular time in bed for at least 8 hours. 3. Precautions related to driving. No driving if feel any sleepiness. 4. Watching weight. 5. Follow up visit to discuss results of sleep study. Thank you very much for allowing me to participate in the management of your patient. Murali Cárdensa MD, PhD, FAASM. Diplomat of [place] Board [employer] Sleep Medicine, Sleep Medicine Board by [place] Board of Internal Medicine Internet Specialist of [facility] [place]
== END ==
LOC: 3 N SLEEP 14:19
PROVIDERS: ATTEND Internal Medicine
DX: G47.33 Obstructive sleep apnea (adult) (pediatric) (principal); J45.909 Unspecified asthma, uncomplicated; E11.9 Type 2 diabetes mellitus without complications; R51.9 Headache, unspecified; Z98.890 Other specified postprocedural states; Z79.84 Long term (current) use of oral hypoglycemic drugs; Z88.1 Allergy status to other antibiotic agents; Z87.891 Personal history of nicotine dependence
CPT/HCPCS: 99212

== ENCOUNTER → 2023-02-24 | Outpatient (CLI) | payer MEDICARE ==
--- NOTE | 2023-02-24 16:49 | P.PN ---
Subjective DATE: 02/24/2023 FOLLOW UP VISIT. Patient with obstructive sleep apnea hypopnea syndrome return to sleep center for follow-up visit. Information from previous visit have been reviewed. Patient is using PAP equipment every night for the whole night, getting PAP supplies in time. The patient does not have significant problems with the mask, PAP unit and humidification. [place] sleepiness scale is 4, which is normal. I checked information from PAP unit. PAP unit pressure 5-15, average 12.6 cm H2O. Usage is 100% and 93 % for more then 4 hours, average 6.5 hours per night. Leak is 18.6 l/m, which is in acceptable range. Apnea Hypopnea Index is 3.7, which is normal. MEDICATIONS:1. Propranolol 80 mg once a day 2. Metformin 50 mg once a day 3. Hydrochlorothiazide 25 mg once a day 4. Amitriptyline 50 mg once a day 5. Bupropion 150 mg once a day 6. Gabapentin 600 mg twice a day 7. Meloxicam 50 mg 2 tablets twice a day 8. Citalopram 20 mg once a day During physical exam: GENERAL: A pleasant patient without any distress. VITAL SIGNS: BP 145/80, HR 92, RR 18 , weight 207, temperature 98.2, oxygen saturation at room air 96 % . HEENT: PERRLA, EOMI.low position of soft palate, Mallapati 4 . NECK: Supple. No JVD. LUNGS: Clear to percussion and to auscultation. Good air exchange. No wheezing or rhonchi. HEART: S1, S2 regular. ABDOMEN: Soft and nontender.[] EXTREMITIES: No clubbing or cyanosis. PRODUCTION ENGINEER: Awake, alert, and oriented x3. No focal deficit. Impressions: 1. Obstructive sleep apnea-hypopnea syndrome. Patient demonstrated great compliance with treatment, benefiting from treatment. 2. History of asthma. 3. History of headaches in the morning. 4. Diabetes mellitus. 5. Status post 3 back surgeries. 6. Status post left knee surgery. Plan: 1. Continue using PAP equipment every night for the whole night. 2. To change air filter at least 1-2 times per month. 3. PAP unit should stay lower then position of the head. 4. Advised patient to remove all remaining water from humidifier canister daily and make it dry after each usage. Refill canister with fresh distilled water before each usage. 5. Sleep hygiene with regular time in bed for at least 8 hours. 6. Precautions related to driving. No driving if feel any sleepiness. 7. I will maintain prescription for PAP supplies including mask, tube, filters. 8. Follow up visit in 6 months or earlier if patient has any problems. 9. Watching weight. Thank you very much for allowing me to participate in the management of your patient. Murali Cárdenas MD, PhD, FAASM. Diplomat of [place] Board of Sleep Medicine, Sleep Medicine Board by [place] Board of Internal Medicine Senior Chemical Engineer of [facility] [place]
== END ==
LOC: 3 N SLEEP 15:37
PROVIDERS: ATTEND Internal Medicine
DX: G47.33 Obstructive sleep apnea (adult) (pediatric) (principal); E11.9 Type 2 diabetes mellitus without complications; J45.909 Unspecified asthma, uncomplicated; Z98.890 Other specified postprocedural states; Z79.84 Long term (current) use of oral hypoglycemic drugs; Z79.899 Other long term (current) drug therapy; Z88.1 Allergy status to other antibiotic agents; Z87.891 Personal history of nicotine dependence; Z86.69 Personal history of other diseases of the nervous system and sense organs
CPT/HCPCS: 99212

== ENCOUNTER → 2024-02-11 | Outpatient (CLI) | payer MEDICARE ==
--- NOTE | 2024-02-11 13:56 | MM ---
Reason for Exam: Clinical finding. Last mammogram was performed 1 year(s) and 8 month(s) ago. Patient History: Menarche at age 15. First Full-Term at age 27. Postmenopausal. Patient used Estrogen for 18 years. Excisional Biopsy on the Right side. Risk Values: Marilee 5 year model risk: 1.9%. NCI Lifetime model risk: 9.3%. Prior Study Comparison: 07/08/2022 Bilateral MG 3D screening mammo w/cad, [facility]. Tissue Density: Right: There are scattered areas of fibroglandular density. Findings: Analyzed By CAD. Chronic nodularity central inner aspect of the right breast posterior depth. Chronic nodularity lateral anterior left breast. Scattered benign coil cyst and round calcifications. Lateral asymmetric density at a middle depth is unchanged. No significant change from prior exams. Patient's outside prior is not available for review. Overall Assessment: Benign, BI-RAD 2 Management: Screening Mammogram of the left breast in 1 day. NOTE THAT THE PATIENT IS DUE FOR SCREENING EXAM OF THE LEFT BREAST NOW. Results were given to the patient verbally at the time of exam. Patient should continue monthly self-breast exams. A clinical breast exam by your physician is recommended on an annual basis. This exam should not preclude additional follow-up of suspicious palpable abnormalities. Note on Marilee scores and lifetime risk: 1. A Marilee score greater than 3% is considered moderate risk. If this is the case, consider specialist referral to assess eligibility for a risk reducing agent. 2. If overall lifetime risk for the development of breast cancer is 20% or higher, the patient may qualify for future screening with alternating mammogram and breast MRI. [facility], , 02/11/2024 1:52 PM. Electronically signed and approved by: Ernesto Prather M.D. Radiologist
== END | disposition home or self-care (01) ==
LOC: RADMAMWWP 12:46
PROVIDERS: ATTEND Family Medicine
DX: R92.8 Other abnormal and inconclusive findings on diagnostic imaging of breast (principal); Z78.0 Asymptomatic menopausal state; R92.321 Mammographic fibroglandular density, right breast
CPT/HCPCS: 77065; G0279; 77061